=== PATIENT | female | born 1965 | race Caucasian/White ===

== ENCOUNTER → 2017-09-25 | Outpatient (CLI) | payer OTHER | LOC: M.ULTRA 15:25 | DX: R10.11 Right upper quadrant pain (principal); R35.0 Frequency of micturition ==

== ENCOUNTER → 2020-10-13 | Outpatient (CLI) | payer OTHER | LOC: M.RAD 08:51 | PROVIDERS: ATTEND Registered Nurse Diabetes Educator | DX: Z12.31 Encounter for screening mammogram for malignant neoplasm of breast (principal) ==

== ENCOUNTER → 2020-10-23 | Outpatient (CLI) | payer OTHER | LOC: M.ULTRA 14:59 | PROVIDERS: ATTEND Registered Nurse Diabetes Educator | DX: N60.01 Solitary cyst of right breast (principal); N60.02 Solitary cyst of left breast ==